=== PATIENT | male | born 1990 ===

== ENCOUNTER 2023-01-18 13:25 | Emergency (ER) | payer SELFPAY ==
[~2023-01-18] VITALS: Ht 167 cm; Wt 80.0 kg
[2023-01-18 13:25] VITALS: BP 154/113
[2023-01-18 13:40] LABS: BASOPHILS # (AUTO) 0.1 10^3/uL (0.0-0.1); BASOPHILS % (AUTO) 1 % (0-10); EOSINOPHILS # (AUTO) 0.2 10^3/uL (0.0-0.3); EOSINOPHILS % (AUTO) 2 % (0-10); HEMATOCRIT 53 % (40-54); HEMOGLOBIN 18.1 g/dL (13.3-17.7); LYMPHOCYTES # (AUTO) 2.2 10^3/uL (1.0-4.0); LYMPHOCYTES % (AUTO) 26 % (12-44); MEAN CORPUSCULAR HEMOGLOBIN 33 pg (25-34); MEAN CORPUSCULAR HGB CONC 34 g/dL (32-36); MEAN CORPUSCULAR VOLUME 96 fL (80-99); MEAN PLATELET VOLUME 9.2 fL (9.0-12.2); MONOCYTES % (AUTO) 11 % (0-12); NEUTROPHILS # (AUTO) 5.3 10^3/uL (1.8-7.8); NEUTROPHILS % (AUTO) 61 % (42-75); PLATELET COUNT 265 10^3/uL (130-400); WHITE BLOOD COUNT 8.8 10^3/uL (4.3-11.0)
[2023-01-18 13:54] LABS: CHLORIDE 100 MMOL/L (98-107); POTASSIUM 4.1 MMOL/L (3.6-5.0); SODIUM 140 MMOL/L (135-145)
--- NOTE | 2023-01-18 14:00 | Diagnostic Imaging Report ---
CLINICAL INDICATION: Patient with chest pain. EXAM: Portable chest x-ray upright view. COMPARISON: None. FINDINGS: Lungs/pleura: There are linear opacities involving the right upper lobe which may be related to atelectasis versus scarring. There is minimal atelectasis involving the left lung base. There is no lung infiltrate seen. There is no pneumothorax. There is no pleural effusion. Mediastinum: Unremarkable. Pulmonary vasculature: Unremarkable. Heart: Unremarkable. Bones/extrathoracic soft tissue: Unremarkable. IMPRESSION: 1: There is no radiographic evidence of acute cardiopulmonary process. 2: There is mild atelectasis versus scarring involving the right upper lobe. There is mild left bibasilar atelectasis. Dictated by: Dictated on workstation # [id number]
[2023-01-18 14:03] LABS: ALANINE AMINOTRANSFERASE 41 U/L (0-55); ALBUMIN 4.6 GM/DL (3.2-4.5); ALKALINE PHOSPHATASE 108 U/L (40-136); BILIRUBIN,TOTAL 0.2 MG/DL (0.1-1.0); BUN/CREATININE RATIO 10; CALCIUM 9.5 MG/DL (8.5-10.1); CARBON DIOXIDE 28 MMOL/L (21-32); CREATININE SERUM 0.89 MG/DL (0.60-1.30); GFR ESTIMATED 116; GLUCOSE 105 MG/DL (70-105); MAGNESIUM 2.6 MG/DL (1.6-2.4)
--- NOTE | 2023-01-18 14:07 | ED General ---
General Chief Complaint: Respiratory Problems Stated Complaint: SOB; CHEST PAIN Nursing Triage Note: PT REPORTS SHORTNESS OF BREATH FOR 4-5 DAYS WITH A COUGH. HE REPORTS IT HURTS ON HIS LEFT SIDE OF HIS CHEST WHEN HE COUGHS. History of Present Illness Date Seen by Provider: Jan 18, 2023 Time Seen by Provider: 13:29 Initial Comments 32-year-old male with PMH of mitral valve surgery as a child/chronic alcoholism/marijuana usage, is here with complaints of left-sided chest pain whi ch began 4 to 5 days ago and is on and off. Patient also has had cough for the same period of time. Patient reports that the pain is worse when he coughs. Denies fever and chills, congestion, shortness of breath, abdominal pain, diarrhea and nausea and vomiting. No known sick contacts. Allergies and Home Medications Allergies Coded Allergies: No Known Drug Allergies (Unverified , 01/18/23) Patient Home Medication List Home Medication List Reviewed: Yes Review of Systems Review of Systems Constitutional: no symptoms reported EENTM: no symptoms reported Cardiovascular: chest pain Gastrointestinal: no symptoms reported Genitourinary: no symptoms reported Musculoskeletal: no symptoms reported Past Mhmiciw-Lpayhm-Pxjztt Hx Patient Social History Tobacco Use?: Yes Tobacco type used: Cigarettes Smoking Status: Current Everyday Smoker Use of E-Cig and/or Vaping dev: No Substance use?: Yes Substance type: Marijuana Substance frequency: Daily Alcohol Use?: Yes Alcohol type: Beer, Hard Liquor Alcohol Frequency: Daily Pt feels they are or have been: No Immunizations Up To Date Influenza Vaccine Up-to-Date: No; Not Current Physical Exam Vital Signs Vital Signs - First Documented 01/18/23 13:25 Temp 36.2 Pulse 94 Resp 16 B/P (MAP) 154/113 (127) Pulse Ox 95 O2 Delivery Room Air Capillary Refill : Less Than 3 Seconds Height, Weight, BMI Height: '" Weight: lbs. oz. kg; 28.00 BMI Method: General Appearance: No Apparent Distress, WD/WN HEENT: PERRL/EOMI Neck: Full Range of Motion Respiratory: Chest Non Tender, Lungs Clear, Normal Breath Sounds, No Accessory Muscle Use, No Respiratory Distress Cardiovascular: Regular Rate, Rhythm, No Edema, Other (Point tenderness to the second and third costochondral junction. It is reproducible) Gastrointestinal: Non Tender, Soft Neurologic/Psychiatric: Alert Skin: Normal Color Progress/Results/Core Measures Suspected Sepsis SIRS Temperature: Pulse: 94 Respiratory Rate: 16 Laboratory Tests 01/18/23 13:33: White Blood Count 8.8 Blood Pressure 154 /113 Mean: 127 Laboratory Tests 01/18/23 13:33: Platelet Count 265 Results/Orders Lab Results Laboratory Tests Test 01/18/23 13:33 Range/Units White Blood Count 8.8 4.3-11.0 10^3/uL Red Blood Count 5.51 4.30-5.52 10^6/uL Hemoglobin 18.1 H 13.3-17.7 g/dL Hematocrit 53 40-54 % Mean Corpuscular Volume 96 80-99 fL Mean Corpuscular Hemoglobin 33 25-34 pg Mean Corpuscular Hemoglobin Concent 34 32-36 g/dL Red Cell Distribution Width 13.2 10.0-14.5 % Platelet Count 265 130-400 10^3/uL Mean Platelet Volume 9.2 9.0-12.2 fL Immature Granulocyte % (Auto) 0 % Neutrophils (%) (Auto) 61 42-75 % Lymphocytes (%) (Auto) 26 12-44 % Monocytes (%) (Auto) 11 0-12 % Eosinophils (%) (Auto) 2 0-10 % Basophils (%) (Auto) 1 0-10 % Neutrophils # (Auto) 5.3 1.8-7.8 10^3/uL Lymphocytes # (Auto) 2.2 1.0-4.0 10^3/uL Monocytes # (Auto) 1.0 0.0-1.0 10^3/uL Eosinophils # (Auto) 0.2 0.0-0.3 10^3/uL Basophils # (Auto) 0.1 0.0-0.1 10^3/uL Immature Granulocyte # (Auto) 0.0 0.0-0.1 10^3/uL Sodium Level 140 135-145 MMOL/L Potassium Level 4.1 3.6-5.0 MMOL/L Chloride Level 100 98-107 MMOL/L My Orders Orders - DM YOU MD Continuous Ekg Monitoring (01/18/23 13:34) Ekg Tracing (01/18/23 13:34) Chest 1 View Ap/Pa Only (01/18/23 13:34) Alcohol (01/18/23 13:35) Cbc And Automated Diff (01/18/23 13:35) Comprehensive Metabolic Panel (01/18/23 13:35) Drug Screen Stat (Urine) (01/18/23 13:35) Magnesium (01/18/23 13:35) Ua Culture If Indicated (01/18/23 13:35) Influenza A And B By Pcr (01/18/23 13:35) Troponin I Fs (01/18/23 13:35) Covid 19 Inhouse Test (01/18/23 13:35) Vital Signs/I&O 01/18/23 13:25 Temp 36.2 Pulse 94 Resp 16 B/P (MAP) 154/113 (127) Pulse Ox 95 O2 Delivery Room Air Capillary Refill : Less Than 3 Seconds Blood Pressure Mean: 127 Progress Note : Progress Note 1. CHEST PAIN WORK-UP: - CXR: - EKG: non-ischemic - CBC/ CMP/Troponin: negative - UA/ UDS: pt did not give sample - s.ETOH: elevated 178 - Pt left AMA before lab results came back, stating that his symptoms are all gone and he does not want to stay in the ER. Risks and benefits explained and pt still chose to leave. Departure Impression Primary Impression: Chest pain Disposition: AGAINST MEDICAL ADVICE Condition: Against Medical Advice Departure-Patient Inst. Referrals: NO,LOCAL PHYSICIAN (PCP/Family) Primary Care Physician DM YOU MD Jan 18, 2023 14:07
== END 2023-01-18 14:03 | disposition left against medical advice (07) ==
LOC: ER FS 13:27
DX: R07.89 Other chest pain (principal); F17.210 Nicotine dependence, cigarettes, uncomplicated
CPT/HCPCS: 36415; 71045; 80053; 83735; 84484; 85025; 87636; 93005; 93041; 99284; G0480; 80320